=== PATIENT | female | born 1995 | race Caucasian/White ===

== ENCOUNTER 2016-04-17 10:13 | Emergency (ER) | payer SELFPAY ==
[~2016-04-17] VITALS: Ht 162.6 cm; Wt 68.0 kg
--- NOTE | 2016-04-17 10:39 | NUR ---
PT AMBULATED TO ER BED 06.
[2016-04-17 10:49] VITALS: BP 177/97
--- NOTE | 2016-04-17 11:28 | NUR ---
PT STATES COUGHING FOR ONE MONTH . DENIES N/V/D; SKIN IS PINK/WARM/DRY; AAOX4 WITH EVEN AND STEADY GAIT; LUNGS CLEAR BL; HR EVEN AND REGULAR; PT DENIES ANY FEVER, CP, SOB, AT THIS TIME; VSS; PATIENT POSITIONED FOR COMFORT; HOB ELEVATED; BEDRAILS UP X2; BED DOWN. ER MD MADE AWARE OF PT STATUS.
[2016-04-17 11:51] VITALS: BP 132/80
--- NOTE | 2016-04-17 11:51 | NUR ---
Note undone in EDM - 04/17/16 at 1400 by PATSY Patient discharged with v/s stable. Written and verbal after care instructions given and explained. Patient alert, oriented and verbalized understanding of instructions. Ambulatory with steady gait. All questions addressed prior to discharge. ID band removed. Patient advised to follow up with PMD. Rx of AZITHROMYCIN,PROMETHAZINE,PREDNISONE given. Patient educated on indication of medication including possible reaction and side effects. Opportunity to ask questions provided and answered.
--- NOTE | 2016-04-17 11:51 | NUR ---
Patient discharged with v/s stable. Written and verbal after care instructions given and explained. Patient alert, oriented and verbalized understanding of instructions. Ambulatory with steady gait. All questions addressed prior to discharge. ID band removed. Patient advised to follow up with PMD. Rx of AZITHROMYCIN,DEXTROMETHORPHAN HYDROBROMIDE/PROMETHAZINE HYDROCHLORIDE,PREDNISONE given. Patient educated on indication of medication including possible reaction and side effects. Opportunity to ask questions provided and answered.
== END 2016-04-17 11:51 | disposition home or self-care (01) ==
LOC: MED 10:13
DX: J06.9 Acute upper respiratory infection, unspecified (principal)

== ENCOUNTER 2017-02-24 10:32 | Emergency (ER) | payer MEDICAID ==
[~2017-02-24] VITALS: Ht 162.6 cm; Wt 63.0 kg
[2017-02-24 10:41] VITALS: BP 103/90
--- NOTE | 2017-02-24 10:46 | NUR ---
Patient ambulated to bed 12. RN evaluating patient at bedside.
--- NOTE | 2017-02-24 10:48 | NUR ---
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 pt is aox4, rr are even and unlabored. nad. pt positioned for comfort, bed down. awaiting primary er md pollard.
--- NOTE | 2017-02-24 10:50 | NUR ---
er md kaplan by bedside examining pt
[2017-02-24] MEDS ORDERED: KETOROLAC 30 MG/ML VIAL IM ONE (11:00)
[2017-02-24] MEDS ORDERED: DIAZEPAM 5 MG TAB PO ONE (11:00)
--- NOTE | 2017-02-24 11:12 | NUR ---
PT TO XRAY VIA WHEELCHAIR ACCOMPANIED WITH [employer] IN[employer]ER
--- NOTE | 2017-02-24 11:22 | NUR ---
PT RETURNED FROM XRAY VIA WHEELCHAIR ACCOMPANIED BY GRAIN ELEVATOR MAN; PT RETURNED TO [facility] WITHOUT INCIDENT
[2017-02-24 12:09] LABS: APPEARANCE,URINE CLOUDY (CLEAR); BILIRUBIN,URINE NEGATIVE (NEGATIVE); BLOOD, URINE 3+ (NEGATIVE); COLOR,URINE RED (YELLOW); LEUKOCYTE ESTERASE ,URINE TRACE (NEGATIVE); NITRITE, URINE POSITIVE (NEGATIVE); PH,URINE 6.5 (5.0-9.0); UGLUCOSE NEGATIVE (NEGATIVE)
[2017-02-24 12:16] LABS: RBC,URINE TOO NUMEROUS TO COUN /HPF (0-5)
[2017-02-24 12:31] VITALS: BP 119/74
--- NOTE | 2017-02-24 12:31 | NUR ---
Patient discharged with v/s stable. Written and verbal after care instructions given and explained. Patient alert, oriented and verbalized understanding of instructions. Ambulatory with steady gait. All questions addressed prior to discharge. ID band removed. Patient advised to follow up with PMD. Rx of CIPRO 500MG TAB, NAPROSYN 500MG TAB & TYLENOL WITH CODEINE NO. 3. TAB given. Patient educated on indication of medication including possible reaction and side effects. Opportunity to ask questions provided and answered.
== END 2017-02-24 12:31 | disposition home or self-care (01) ==
LOC: MED 10:32
DX: N39.0 Urinary tract infection, site not specified (principal)
CPT/HCPCS: 72110; 81001; 81025; 87086; 96372; 99285; J1885

== ENCOUNTER 2023-03-15 10:58 | Emergency (ER) | payer MEDICAID ==
[~2023-03-15] VITALS: Ht 165.1 cm; Wt 72.6 kg
[~2023-03-15 10:58] MED LIST: FERR325E14 PO; LABE200T12 PO
[2023-03-15 11:14] VITALS: BP 142/105; PULSE 88; RESP 18; TEMP 97; O2SAT 98
[2023-03-15] MEDS ORDERED: NAPR-1704 PO (14:20)
[2023-03-15] MEDS ORDERED: CAPS1ADH5 TP (14:20)
== END 2023-03-15 14:30 | disposition home or self-care (01) ==
LOC: MED 10:58
DX: S30.0XXA Contusion of lower back and pelvis, initial encounter (principal); M46.1 Sacroiliitis, not elsewhere classified; I10 Essential (primary) hypertension; Z79.899 Other long term (current) drug therapy; W01.0XXA Fall on same level from slipping, tripping and stumbling without subsequent striking against object, initial encounter; Y92.89 Other specified places as the place of occurrence of the external cause; Y93.89 Activity, other specified; Y99.8 Other external cause status
CPT/HCPCS: 72100; 72220; 81002; 81025; 99284

== ENCOUNTER 2023-05-31 17:14 | Emergency (ER) | payer MEDICAID ==
[~2023-05-31] VITALS: Ht 162.6 cm; Wt 83.9 kg
[~2023-05-31 17:14] MED LIST changes: +CAPS1ADH5 TP; +NAPR-1704 PO
[2023-05-31 17:19] VITALS: BP 138/111; PULSE 116; RESP 20; TEMP 98.1; O2SAT 99
[2023-05-31] MEDS ORDERED: IBUP-2213 PO (18:35)
[2023-05-31] MEDS ORDERED: CEPH-588 PO (18:35)
[2023-05-31] MEDS ORDERED: SULF-59 PO (18:35)
[2023-05-31 19:08] VITALS: BP 136/72
== END 2023-05-31 19:08 | disposition home or self-care (01) ==
LOC: MED 17:14
DX: L02.31 Cutaneous abscess of buttock (principal); I10 Essential (primary) hypertension; Z79.899 Other long term (current) drug therapy
CPT/HCPCS: 99284